=== PATIENT | female | born 1970 | race Caucasian/White ===

== ENCOUNTER → 2016-07-09 | Outpatient (CLI) | payer BC ==
[~2016-07-09] MED LIST: BENTYL20 M1 PO; DELTASONE20 MG PO; ZITHROMAX1 G/PKT PO; ZOFRAN PO
--- NOTE | ~2016-07-09 | CT57 ---
[facility] A Service [facility] RADIOLOGY TEXT RESULTS PATIENT: SAMPSON NAVARRETE LOCATION: [facility] : 72 UNIT #: [id number] AGE: [address]: Lucy Kulkarni SEX: F ORDER DR: [id number] [place] [id number] O MR#: [id number] Acc #: [id number] NAME: SAMPSON NAVARRETE : 1970 SEX: F STUDY DATE/TIME: 07/09/2016 15:14 UNIT: [facility] ROOM: STUDY DESCRIPTION: CT Chest Wo Cont Attending Physician: Lucy Kulkarni A.P.R.N. Referring Physician: Lucy Kulkarni A.P.R.N. Ordering Physician: Lucy Kulkarni A.P.R.N. Primary Care Physician: Mona Rbo M.D. MEDICAL IMAGING REPORT This report is preliminary unless electronic signature is present. EXAM CT chest without contrast, high-resolution protocol. DATE OF EXAM 07/09/2016 INDICATIONS Abnormal finding on chest x-ray at ordering physician's office. Abnormal finding diagnostic imaging of the chest. PROCEDURE Unenhanced CT of the chest utilizing high-resolution technique. COMPARISON None. TECHNIQUE NOTE: This CT exam was performed with one or more of the following radiation dose reduction techniques: automatic exposure control, adjustment of mA and/or kV according to patient size, and iterative reconstruction. FINDINGS The lungs are clear. There is no dense consolidation, suspicious pulmonary nodule, or pleural effusion. No pneumothorax. Airway patent. There is no evidence for appreciable air trapping bronchiectasis or interstitial lung disease. No adenopathy. Previous cholecystectomy. No acute findings in the upper abdomen. No aggressive appearing bone lesion. IMPRESSION No acute findings in the chest. Negative high-resolution chest CT. [facility] A Service [facility] RADIOLOGY TEXT RESULTS PATIENT: SAMPSON NAVARRETE LOCATION: [facility] : 72 UNIT #: [id number] AGE: [address]: Lucy Kulkarni SEX: F ORDER DR: Dictated by... Lisandro Spencer M.D. THIS IS AN ELECTRONICALLY VERIFIED REPORT Lisandro Spencer M.D. at 07/11/2016 9:51 PM PINA/bora TD: 07/09/2016 21:20 JOB #: [id number] MEDICAL IMAGING REPORT Page 1 of 1
== END | disposition home or self-care (01) ==
LOC: SCT 15:00
DX: R93.8 Abnormal findings on diagnostic imaging of other specified body structures (principal); R06.83 Snoring
CPT/HCPCS: 71250